=== PATIENT | male | born 1975 | race Caucasian/White ===

== ENCOUNTER → 2016-10-22 | Emergency (ER) | payer OTHER ==
[~2016-10-22] VITALS: Ht 177.8 cm; Wt 120.2 kg
[~2016-10-22] MED LIST: BACTRIM DS 8001 TA1 PO; BENTYL10 MG PO; CEPHALEXIN250 MG PO; CEPHALEXIN500 M1 PO; CIPROFLOXACIN500 MG PO; CLINDAMYCIN150 MG PO; DOXYCYCLINE MO100 MG PO; HYDROCODONE BIT1 T11 PO; IBU-8800 MG PO; IBU800 MG PO; LEVOFLOXACIN500 MG PO; MEDROL DOSEPAK4 MG PO; Motrin,Rufen800 MG PO; NKHM; PRILOSEC PO; PROVENTIL0.09 MG/A1 INH; Percocet 325 MG1 TAB PO; ROBITUSSIN AC 110 ML PO; ROBITUSSIN DAC PO; STOMACH MED PO; VICODIN 5/500 505 MG PO; VICODIN 500 MG-1 TAB PO; ZITHROMAX Z PA250 MG PO
== END ==
LOC: ED 09:47
DX: L02.01 Cutaneous abscess of face (principal); F17.200 Nicotine dependence, unspecified, uncomplicated

== ENCOUNTER 2017-04-08 16:04 | Emergency (ER) | payer OTHER ==
[~2017-04-08] VITALS: Ht 177.8 cm; Wt 113.4 kg
[2017-04-08] MEDS ORDERED: TESSALON PERLE100 M1 PO (18:04)
[2017-04-08] MEDS ORDERED: ZITHROMAX250 MG PO (18:04)
[2017-04-08] MEDS ORDERED: PROAIR HFA8.5 GM INH (18:04)
[2017-04-08] MEDS ORDERED: HYCODAN/HYDROMET5 ML PO (18:04)
== END 2017-04-08 18:42 | disposition home or self-care (01) ==
LOC: ED 16:04
DX: J40 Bronchitis, not specified as acute or chronic (principal); F17.200 Nicotine dependence, unspecified, uncomplicated

== ENCOUNTER → 2017-08-11 | Outpatient (CLI) | payer OTHER ==
[~2017-08-11] MED LIST changes: +HYCODAN/HYDROMET5 ML PO; +PROAIR HFA8.5 GM INH; +TESSALON PERLE100 M1 PO; +ZITHROMAX250 MG PO
[2017-08-11 08:42] LABS: BASO # 0.1 10*3/uL (0.0-0.1); BASO % 0.8 % (0.0-1.0); EOS # 0.3 10*3/uL (0.0-0.4); EOS % 2.4 % (1.0-4.0); HEMATOCRIT 50.7 % (42.0-52.0); HEMOGLOBIN 17.6 g/dl (14.0-18.0); LYMPH # 3.9 10*3/uL (1.3-4.4); LYMPH % 31.7 % (27.0-41.0); MEAN CORPUSCULAR HGB 30.6 pg (27.0-31.0); MEAN CORPUSCULAR HGB CONC 34.7 g/dl (33.0-37.0); MEAN PLATELET VOLUME 11.4 fl (9.6-12.3); MONO # 0.6 10*3/uL (0.1-1.0); MONO % 4.7 % (3.0-9.0); NEUT # 7.4 10*3/uL (2.3-7.9); NEUT % 59.9 % (47.0-73.0); PLATELET COUNT AUTOMATED 144 10*3/uL (130-400); RED BLOOD COUNT 5.76 10*6/uL (4.50-5.90); WHITE BLOOD COUNT 12.3 10*3/uL (4.8-10.8)
[2017-08-11 08:46] LABS: ALBUMIN 3.8 gm/dl (3.1-4.5); ALKALINE PHOSPHATASE 59 U/L (45-117); BUN 7 mg/dl (7-24); CHLORIDE 103 mmol/L (98-107); CHOLESTEROL 182 mg/dL (<200); CREATININE 1.08 mg/dL (0.70-1.30); HDL CHOLESTEROL 32 mg/dl (40-60); LDL CHOLESTEROL 118 mg/dL (9-159); PHOSPHOROUS 3.8 mg/dL (2.5-4.9); POTASSIUM 3.7 mmol/L (3.5-5.1); SGOT/AST 17 IU/L (3-35); SGPT/ALT 38 U/L (12-78); SODIUM 138 mmol/L (136-145); TOTAL PROTEIN 6.9 gm/dL (6.4-8.2); TRIGLYCERIDES 161 mg/dl (<150); VLDL CHOLESTEROL 32 mg/dL (6-40)
== END | disposition home or self-care (01) ==
LOC: LAB 07:38
PROVIDERS: Family Medicine
DX: Z13.220 Encounter for screening for lipoid disorders (principal); R05 Cough; E55.9 Vitamin D deficiency, unspecified; R25.2 Cramp and spasm; R00.0 Tachycardia, unspecified; R79.89 Other specified abnormal findings of blood chemistry; Z87.891 Personal history of nicotine dependence

== ENCOUNTER 2017-10-18 18:50 | Emergency (ER) | payer OTHER ==
[~2017-10-18] VITALS: Wt 113.4 kg
[2017-10-18 19:19] LABS: BASO # 0.1 10*3/uL (0.0-0.1); BASO % 0.9 % (0.0-1.0); EOS # 0.1 10*3/uL (0.0-0.4); EOS % 0.9 % (1.0-4.0); LYMPH # 1.8 10*3/uL (1.3-4.4); LYMPH % 15.7 % (27.0-41.0); MEAN CELL VOLUME 88.9 fl (80.0-94.0); MEAN CORPUSCULAR HGB 30.2 pg (27.0-31.0); MEAN PLATELET VOLUME 10.2 fl (9.6-12.3); MONO # 0.5 10*3/uL (0.1-1.0); MONO % 3.9 % (3.0-9.0); NEUT # 9.1 10*3/uL (2.3-7.9); NEUT % 78.2 % (47.0-73.0); PLATELET COUNT AUTOMATED 219 10*3/uL (130-400); RED BLOOD COUNT 5.96 10*6/uL (4.50-5.90); RED CELL DISTRI WIDTH 13.5 % (0-14.5); WHITE BLOOD COUNT 11.6 10*3/uL (4.8-10.8)
[2017-10-18 19:30] LABS: INTERNATIONAL NORM RATIO 1.1 (2.0-3.5)
[2017-10-18 19:41] LABS: ALBUMIN 3.8 gm/dl (3.1-4.5); ALKALINE PHOSPHATASE 67 U/L (45-117); BUN 6 mg/dl (7-24); CHLORIDE 105 mmol/L (98-107); CREATININE 1.06 mg/dL (0.70-1.30); POTASSIUM 3.8 mmol/L (3.5-5.1); SGOT/AST 17 IU/L (3-35); SGPT/ALT 40 U/L (12-78); SODIUM 139 mmol/L (136-145); TOTAL PROTEIN 6.9 gm/dL (6.4-8.2)
[2017-10-18 19:42] LABS: TROPONIN I < 0.015 ng/ml (<0.045)
== END 2017-10-18 20:32 | disposition left against medical advice (07) ==
LOC: ED 18:50
PROVIDERS: Physician Assistant
DX: R07.9 Chest pain, unspecified (principal); F17.200 Nicotine dependence, unspecified, uncomplicated; Z90.49 Acquired absence of other specified parts of digestive tract; Z79.899 Other long term (current) drug therapy

== ENCOUNTER 2018-04-08 19:30 | Emergency (ER) | payer OTHER ==
[~2018-04-08] VITALS: Ht 177.8 cm; Wt 115.7 kg
[2018-04-08 19:44] LABS: BILIRUBIN NEGATIVE (NEGATIVE); BLOOD 1+ (NEGATIVE); CLARITY SL CLOUDY (CLEAR); COLOR YELLOW (YELLOW); GLUCOSE NEGATIVE (NEGATIVE); KETONE NEGATIVE (NEGATIVE); LEUKO ESTERASE 2+ (NEGATIVE); NITRITE NEGATIVE (NEGATIVE); PH 6.5 (5.0-9.0); SPECIFIC GRAVITY 1.015 (1.005-1.030)
[2018-04-08 19:50] LABS: BACTERIA 1+; WBC 51-100 wbc/hpf (0-5)
[2018-04-08 19:51] LABS: RBC 31-40 rbc/hpf (0-2)
[2018-04-08] MEDS ORDERED: SEPTDS PO (19:58)
== END 2018-04-08 20:42 | disposition home or self-care (01) ==
LOC: ED 19:30
PROVIDERS: Physician Assistant
DX: N39.0 Urinary tract infection, site not specified (principal); F17.200 Nicotine dependence, unspecified, uncomplicated; R31.9 Hematuria, unspecified

== ENCOUNTER 2018-06-14 19:17 | Emergency (ER) | payer OTHER ==
[~2018-06-14] VITALS: Ht 177.8 cm; Wt 111.1 kg
[~2018-06-14 19:17] MED LIST changes: +SEPTDS PO
== END 2018-06-14 20:10 | disposition home or self-care (01) ==
LOC: ED 19:17
DX: S90.31XA Contusion of right foot, initial encounter (principal); W18.30XA Fall on same level, unspecified, initial encounter; Y93.89 Activity, other specified; Y92.89 Other specified places as the place of occurrence of the external cause; Y99.8 Other external cause status

== ENCOUNTER 2018-12-22 00:35 | Emergency (ER) | payer OTHER ==
[~2018-12-22] VITALS: Ht 177.8 cm; Wt 120.2 kg
--- NOTE | ~2018-12-22 | EKG ---
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
--- NOTE | ~2018-12-22 | EKG ---
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
[2018-12-22 00:54] LABS: BASO # 0.1 10*3/uL (0.0-0.1); BASO % 0.6 % (0.0-1.0); EOS # 0.3 10*3/uL (0.0-0.4); HEMATOCRIT 49.9 % (42.0-52.0); LYMPH # 3.9 10*3/uL (1.3-4.4); MEAN CELL VOLUME 90.4 fl (80.0-94.0); MEAN CORPUSCULAR HGB 30.8 pg (27.0-31.0); MEAN CORPUSCULAR HGB CONC 34.1 g/dl (33.0-37.0); MEAN PLATELET VOLUME 10.1 fl (9.6-12.3); MONO # 0.8 10*3/uL (0.1-1.0); MONO % 6.2 % (3.0-9.0); NEUT # 7.8 10*3/uL (2.3-7.9); NEUT % 60.7 % (47.0-73.0); PLATELET COUNT AUTOMATED 229 10*3/uL (130-400); RED BLOOD COUNT 5.52 10*6/uL (4.50-5.90); RED CELL DISTRI WIDTH 12.8 % (0-14.5); WHITE BLOOD COUNT 12.9 10*3/uL (4.8-10.8)
[2018-12-22 01:05] LABS: INTERNATIONAL NORM RATIO 0.9 (2.0-3.5)
[2018-12-22 01:10] LABS: ALBUMIN 3.9 gm/dl (3.1-4.5); ALKALINE PHOSPHATASE 63 U/L (45-117); BUN 9 mg/dl (7-24); CHLORIDE 104 mmol/L (98-107); CREATININE 1.16 mg/dL (0.70-1.30); POTASSIUM 3.6 mmol/L (3.5-5.1); SGOT/AST 16 IU/L (3-35); SGPT/ALT 25 U/L (12-78); SODIUM 138 mmol/L (136-145); TOTAL PROTEIN 7.2 gm/dL (6.4-8.2); TROPONIN I 0.033 ng/ml (<0.045)
== END 2018-12-22 01:25 | disposition short-term general hospital (02) ==
LOC: ED 00:35
PROVIDERS: Emergency Medicine Emergency Medical Services
DX: I21.3 ST elevation (STEMI) myocardial infarction of unspecified site (principal); Z90.49 Acquired absence of other specified parts of digestive tract

== ENCOUNTER → 2019-01-05 | Outpatient (CLI) | payer OTHER | END | disposition home or self-care (01) | LOC: ORTHO 00:25 | DX: M25.522 Pain in left elbow (principal) ==

== ENCOUNTER → 2019-08-03 | Outpatient (CLI) | payer OTHER ==
[2019-08-03 08:34] LABS: CHOLESTEROL 108 mg/dL (<200); SGOT/AST 19 IU/L (3-35); SGPT/ALT 30 U/L (12-78)
[2019-08-03 08:36] LABS: HDL CHOLESTEROL 32 mg/dl (40-60); LDL CHOLESTEROL 51 mg/dL (9-159); TRIGLYCERIDES 126 mg/dl (<150); VLDL CHOLESTEROL 25 mg/dL (6-40)
== END | disposition home or self-care (01) ==
LOC: LAB 07:40
PROVIDERS: Internal Medicine Cardiovascular Disease
DX: I25.10 Atherosclerotic heart disease of native coronary artery without angina pectoris (principal); E78.2 Mixed hyperlipidemia

== ENCOUNTER 2019-11-28 13:35 | Emergency (ER) | payer OTHER ==
[~2019-11-28] VITALS: Wt 124.7 kg
[2019-11-28] MEDS ORDERED: DOXYCYCLINE100 M3 PO (14:43)
[2019-11-28] MEDS ORDERED: Bactroban Oint22 GM T (14:43)
== END 2019-11-28 14:47 | disposition home or self-care (01) ==
LOC: ED 13:35
DX: S80.862A Insect bite (nonvenomous), left lower leg, initial encounter (principal); L03.116 Cellulitis of left lower limb; W57.XXXA Bitten or stung by nonvenomous insect and other nonvenomous arthropods, initial encounter; Y93.89 Activity, other specified; Y92.89 Other specified places as the place of occurrence of the external cause; Y99.8 Other external cause status

== ENCOUNTER → 2020-12-21 | Outpatient (CLI) | payer OTHER ==
[~2020-12-21] MED LIST changes: +ASPIRIN81 M1 PO; +ATORVASTATIN CA40 M1 PO; +BRILINTA90 M1 PO; +Bactroban Oint22 GM T; +DOXYCYCLINE100 M3 PO; +LOPRESSOR50 M1 PO
== END | disposition home or self-care (01) ==
LOC: CARD 00:19
PROVIDERS: ATTEND Internal Medicine Cardiovascular Disease
DX: I25.10 Atherosclerotic heart disease of native coronary artery without angina pectoris (principal); E78.2 Mixed hyperlipidemia; I25.2 Old myocardial infarction; R07.9 Chest pain, unspecified; R68.84 Jaw pain; Z95.5 Presence of coronary angioplasty implant and graft

== ENCOUNTER 2021-08-29 01:23 | Emergency (ER) | payer OTHER ==
[~2021-08-29] VITALS: Ht 177.8 cm; Wt 122.5 kg
== END 2021-08-29 02:57 | disposition home or self-care (01) ==
LOC: ED 01:23
DX: S02.609A Fracture of mandible, unspecified, initial encounter for closed fracture (principal); Z79.899 Other long term (current) drug therapy; Z79.82 Long term (current) use of aspirin; Y08.89XA Assault by other specified means, initial encounter; Y93.89 Activity, other specified; Y92.89 Other specified places as the place of occurrence of the external cause; Y99.8 Other external cause status

== ENCOUNTER 2021-10-13 17:18 | Emergency (ER) | payer OTHER ==
[~2021-10-13] VITALS: Wt 122.5 kg
== END 2021-10-13 19:18 | disposition home or self-care (01) ==
LOC: ED 17:18
DX: L02.01 Cutaneous abscess of face (principal); Z79.899 Other long term (current) drug therapy; Z79.82 Long term (current) use of aspirin; Z90.49 Acquired absence of other specified parts of digestive tract

== ENCOUNTER 2022-09-08 10:30 | Emergency (ER) | payer OTHER ==
[~2022-09-08] VITALS: Ht 177.8 cm; Wt 126.1 kg
[2022-09-08 11:12] LABS: BASO # 0.1 10*3/uL (0.0-0.1); BASO % 0.8 % (0.0-1.0); EOS # 0.2 10*3/uL (0.0-0.4); EOS % 2.1 % (1.0-4.0); HEMATOCRIT 47.8 % (42.0-52.0); LYMPH # 1.4 10*3/uL (1.3-4.4); LYMPH % 18.6 % (27.0-41.0); MEAN CELL VOLUME 87.2 fl (80.0-94.0); MEAN CORPUSCULAR HGB 30.7 pg (27.0-31.0); MEAN CORPUSCULAR HGB CONC 35.1 g/dl (33.0-37.0); MEAN PLATELET VOLUME 10.4 fl (9.6-12.3); MONO # 0.5 10*3/uL (0.1-1.0); MONO % 6.2 % (3.0-9.0); NEUT # 5.6 10*3/uL (2.3-7.9); NEUT % 71.8 % (47.0-73.0); PLATELET COUNT AUTOMATED 181 10*3/uL (130-400); RED BLOOD COUNT 5.48 10*6/uL (4.50-5.90); RED CELL DISTRI WIDTH 12.4 % (0-14.5); WHITE BLOOD COUNT 7.8 10*3/uL (4.8-10.8)
[2022-09-08 11:26] LABS: ALKALINE PHOSPHATASE 71 U/L (46-116); BUN 8 mg/dl (9-23); CHLORIDE 99 mmol/L (98-107); POTASSIUM 4.2 mmol/L (3.4-5.1); SGPT/ALT 26 U/L (10-49); TOTAL PROTEIN 6.9 gm/dL (6.0-8.0)
[2022-09-08 11:38] LABS: BILIRUBIN Negative (Negative); BLOOD Negative (Negative); CLARITY Clear (Clear); COLOR Yellow (Yellow); GLUCOSE 3+ (Negative); KETONE 2+ (Negative); LEUKO ESTERASE Negative (Negative); NITRITE Negative (Negative); SPECIFIC GRAVITY >= 1.030 (1.001-1.030)
[2022-09-08 11:58] LABS: BACTERIA TRACE; RBC 0-2 rbc/hpf (0-2)
[2022-09-08] MEDS ORDERED: METFORMIN HYDR500 MG PO (12:34)
== END 2022-09-08 12:35 | disposition home or self-care (01) ==
LOC: ED 10:30
PROVIDERS: Family Medicine
DX: E11.65 Type 2 diabetes mellitus with hyperglycemia (principal); I25.2 Old myocardial infarction; I10 Essential (primary) hypertension; E78.00 Pure hypercholesterolemia, unspecified; Z98.890 Other specified postprocedural states

== ENCOUNTER → 2022-09-15 | Outpatient (CLI) | payer OTHER ==
[~2022-09-15] MED LIST changes: +METFORMIN HYDR500 MG PO
[2022-09-15 08:39] LABS: BASO # 0.1 10*3/uL (0.0-0.1); BASO % 0.9 % (0.0-1.0); EOS # 0.2 10*3/uL (0.0-0.4); HEMATOCRIT 46.3 % (42.0-52.0); LYMPH # 1.8 10*3/uL (1.3-4.4); LYMPH % 23.6 % (27.0-41.0); MEAN CELL VOLUME 89.7 fl (80.0-94.0); MEAN CORPUSCULAR HGB 30.6 pg (27.0-31.0); MEAN CORPUSCULAR HGB CONC 34.1 g/dl (33.0-37.0); MEAN PLATELET VOLUME 10.2 fl (9.6-12.3); MONO # 0.5 10*3/uL (0.1-1.0); MONO % 6.4 % (3.0-9.0); NEUT # 5.1 10*3/uL (2.3-7.9); NEUT % 66.4 % (47.0-73.0); PLATELET COUNT AUTOMATED 173 10*3/uL (130-400); RED BLOOD COUNT 5.16 10*6/uL (4.50-5.90); RED CELL DISTRI WIDTH 12.3 % (0-14.5); WHITE BLOOD COUNT 7.6 10*3/uL (4.8-10.8)
[2022-09-15 09:45] LABS: VITAMIN D, 25-HYDROXY 39.9 ng/mL (30-100)
[2022-09-15 09:46] LABS: ALKALINE PHOSPHATASE 57 U/L (46-116); BUN 10 mg/dl (9-23); CHLORIDE 103 mmol/L (98-107); CHOLESTEROL 115 mg/dL (<200); FREE T4 0.98 ng/dl (0.89-1.76); LDL CHOLESTEROL 37 mg/dL (9-159); POTASSIUM 3.9 mmol/L (3.4-5.1); SGPT/ALT 40 U/L (10-49); THYROID STIM HORMONE (HS) 2.029 uIU/ml (0.550-4.780); TOTAL PROTEIN 6.4 gm/dL (6.0-8.0); TRIGLYCERIDES 247 mg/dl (<150)
== END | disposition home or self-care (01) ==
LOC: LAB 08:06
PROVIDERS: ATTEND Internal Medicine
DX: Z13.0 Encounter for screening for diseases of the blood and blood-forming organs and certain disorders involving the immune mechanism (principal); Z13.1 Encounter for screening for diabetes mellitus; Z13.21 Encounter for screening for nutritional disorder; Z13.220 Encounter for screening for lipoid disorders; Z13.228 Encounter for screening for other metabolic disorders; Z13.29 Encounter for screening for other suspected endocrine disorder; Z13.6 Encounter for screening for cardiovascular disorders; Z13.89 Encounter for screening for other disorder; Z13.9 Encounter for screening, unspecified

== ENCOUNTER → 2023-04-13 | Outpatient (CLI) | payer OTHER ==
[2023-04-13 10:07] LABS: CHOLESTEROL 115 mg/dL (<200); LDL CHOLESTEROL 50 mg/dL (9-159); SGPT/ALT 17 U/L (5-49); TRIGLYCERIDES 100 mg/dl (<150)
== END | disposition home or self-care (01) ==
LOC: LAB 09:14
PROVIDERS: ATTEND Internal Medicine Cardiovascular Disease
DX: I25.2 Old myocardial infarction (principal); Z95.5 Presence of coronary angioplasty implant and graft

== ENCOUNTER 2023-05-07 10:02 | Emergency (ER) | payer OTHER ==
[~2023-05-07] VITALS: Ht 177.8 cm; Wt 115.2 kg
[2023-05-07] MEDS ORDERED: JARDIANCE10 MG PO (10:08)
[2023-05-07] MEDS ORDERED: LOSARTAN POTASS50 M1 PO (10:08)
[2023-05-07] MEDS ORDERED: PREDNISONE50 MG PO (10:20)
[2023-05-07] MEDS ORDERED: CYCLOBENZAPRINE10 MG PO (10:21)
== END 2023-05-07 10:27 | disposition home or self-care (01) ==
LOC: ED 10:02
DX: S39.012A Strain of muscle, fascia and tendon of lower back, initial encounter (principal); I25.2 Old myocardial infarction; I10 Essential (primary) hypertension; E78.00 Pure hypercholesterolemia, unspecified; Z98.890 Other specified postprocedural states; Z95.5 Presence of coronary angioplasty implant and graft; X58.XXXA Exposure to other specified factors, initial encounter; Y93.89 Activity, other specified; Y92.89 Other specified places as the place of occurrence of the external cause; Y99.8 Other external cause status

== ENCOUNTER 2023-11-19 10:45 | Emergency (ER) | payer OTHER ==
[~2023-11-19] VITALS: Ht 177.8 cm; Wt 111.1 kg
[~2023-11-19 10:45] MED LIST changes: +CYCLOBENZAPRINE10 MG PO; +JARDIANCE10 MG PO; +LOSARTAN POTASS50 M1 PO; +PREDNISONE50 MG PO
[2023-11-19] MEDS ORDERED: Acetaminophen/Hydrocodone HP 10/325 PO ONE (11:00)
[2023-11-19] MEDS ORDERED: METHOCARBAMOL500 M1 PO (13:10)
== END 2023-11-19 13:41 | disposition home or self-care (01) ==
LOC: ED 10:45
DX: S86.912A Strain of unspecified muscle(s) and tendon(s) at lower leg level, left leg, initial encounter (principal); I25.2 Old myocardial infarction; I10 Essential (primary) hypertension; E78.00 Pure hypercholesterolemia, unspecified; Z95.5 Presence of coronary angioplasty implant and graft; Z90.49 Acquired absence of other specified parts of digestive tract; X58.XXXA Exposure to other specified factors, initial encounter; Y93.89 Activity, other specified; Y92.89 Other specified places as the place of occurrence of the external cause; Y99.8 Other external cause status

== ENCOUNTER → 2023-12-16 | Outpatient (CLI) | payer OTHER ==
[~2023-12-16] MED LIST changes: +METHOCARBAMOL500 M1 PO
== END | disposition home or self-care (01) ==
LOC: RAD 08:16
PROVIDERS: ATTEND Psychiatry & Neurology Neurology
DX: M19.012 Primary osteoarthritis, left shoulder (principal); M46.02 Spinal enthesopathy, cervical region

== ENCOUNTER → 2024-07-07 | Outpatient (CLI) | payer OTHER ==
[2024-07-07 10:07] LABS: BASO # 0.1 10*3/uL (0.0-0.1); BASO % 0.6 % (0.0-1.0); EOS # 0.2 10*3/uL (0.0-0.4); EOS % 2.1 % (1.0-4.0); HEMATOCRIT 50.4 % (42.0-52.0); MEAN CELL VOLUME 90.5 fl (80.0-94.0); MEAN CORPUSCULAR HGB 30.5 pg (27.0-31.0); MEAN CORPUSCULAR HGB CONC 33.7 g/dl (33.0-37.0); MEAN PLATELET VOLUME 9.9 fl (9.6-12.3); MONO # 0.5 10*3/uL (0.1-1.0); MONO % 5.5 % (3.0-9.0); NEUT # 5.9 10*3/uL (2.3-7.9); NEUT % 71.6 % (47.0-73.0); PLATELET COUNT AUTOMATED 184 10*3/uL (130-400); RED BLOOD COUNT 5.57 10*6/uL (4.50-5.90); RED CELL DISTRI WIDTH 12.3 % (0-14.5); WHITE BLOOD COUNT 8.2 10*3/uL (4.8-10.8)
[2024-07-07 10:43] LABS: ALKALINE PHOSPHATASE 50 U/L (46-116); BUN 14 mg/dl (9-23); CHLORIDE 103 mmol/L (98-107); CHOLESTEROL 111 mg/dL (<200); FREE T4 1.07 ng/dl (0.89-1.76); LDL CHOLESTEROL 47 mg/dL (9-159); POTASSIUM 4.2 mmol/L (3.4-5.1); SGPT/ALT 34 U/L (5-49); TOTAL PROTEIN 7.3 gm/dL (6.0-8.0); TRIGLYCERIDES 59 mg/dl (<150)
[2024-07-07 11:37] LABS: VITAMIN D, 25-HYDROXY 38.6 ng/mL (30-100)
== END | disposition home or self-care (01) ==
LOC: LAB 09:50
PROVIDERS: Internal Medicine; ATTEND Internal Medicine Cardiovascular Disease
DX: I10 Essential (primary) hypertension (principal); E11.65 Type 2 diabetes mellitus with hyperglycemia; E78.2 Mixed hyperlipidemia; F17.290 Nicotine dependence, other tobacco product, uncomplicated; R97.20 Elevated prostate specific antigen [PSA]; R53.83 Other fatigue; E53.9 Vitamin B deficiency, unspecified; E55.9 Vitamin D deficiency, unspecified; I25.2 Old myocardial infarction; Z95.5 Presence of coronary angioplasty implant and graft